=== PATIENT | female | born 1990 | race Caucasian/White ===

== ENCOUNTER 2017-11-23 20:27 | Emergency (ER) | payer BC ==
[~2017-11-23] VITALS: Ht 172.7 cm; Wt 74.8 kg
[2017-11-23 20:43] VITALS: BP 142/90
--- NOTE | 2017-11-23 20:47 | NUR ---
TO LOBBY A/W BED, BRYANNA PANIAGUA NOTED
--- NOTE | 2017-11-23 21:33 | NUR ---
PT TAKEN TO BED 8
--- NOTE | 2017-11-23 21:38 | NUR ---
PT CAME IN TO ER WITH C/O PAIN IN THE RIB /ABDOMEN PAIN. X 1 WEEKS. APPROX. PT STATES PAIN IS INTERMITTENT UPON MOVEMENT. PAIN IS LEVEL 8/10. WHEN MOVING/ADLS. A/O 4. STEADT GAIT. PT DENIES ANY N/V/D AT THIS TIME. LUNG SOUNDS CLEAR BILAT. BOWL SOUNDS ACTIVE IN ALL 4 Q. FAMILY AT BEDSIDE. SKIN IS PINK/WARM/DRY; HR EVEN AND REGULAR; PT DENIES ANY FEVER, CP, SOB, OR COUGH AT THIS TIME; ; VSS; PATIENT POSITIONED FOR COMFORT; HOB ELEVATED; BEDRAILS UP X2; BED DOWN. ER MD MADE AWARE OF PT STATUS.
--- NOTE | 2017-11-23 21:46 | NUR ---
Dr. Mckenzie evaluating patient at bedside.
[2017-11-23] MEDS ORDERED: IBUPROFEN 800 MG TAB PO ONE (22:00)
--- NOTE | 2017-11-23 22:13 | NUR ---
XRAY WITH PT
--- NOTE | 2017-11-23 22:24 | NUR ---
PT TAKEN TO XRAY
--- NOTE | 2017-11-23 22:34 | NUR ---
PT RETURN FROM XRAY
[2017-11-23 22:45] VITALS: BP 138/88
== END 2017-11-23 22:45 | disposition home or self-care (01) ==
LOC: MED 20:27
DX: M94.0 Chondrocostal junction syndrome [Tietze] (principal)
CPT/HCPCS: 71101; 81002; 81025; 99284